=== PATIENT | female | born 1990 | race Caucasian/White ===

== ENCOUNTER 2017-07-06 01:28 | Inpatient (IN) | payer SELFPAY ==
[2017-07-06] MEDS ORDERED: Nalbuphine 20 MG/1 ML Amp IVPUSH PRN (19:37)
[2017-07-06] MEDS ORDERED: Ampicillin 2 GM in Sodium Chloride 0.9% 100 ML IV ONE (19:37)
[2017-07-06] MEDS ORDERED: Ondansetron 4 MG/2 ML SDV IVPUSH PRN (19:37)
[2017-07-06] MEDS ORDERED: Sodium Chloride 0.9% 10 ML Syringe FLUSH PRN (19:37)
--- NOTE | 2017-07-06 19:46 | PCM.LDHP ---
L&D History of Present Illness - General Date of Service: 07/06/17 Admit Problem/Dx: Admission Diagnosis/Problem Admission Diagnosis/Problem Source of Information: Patient History Limitations: Reports: No Limitations - History of Present Illness Introduction:: 27 DEMETRI 06/29/2017 VANESSA MENDEZ 41w0d today presented for induction of labor. GBS positive, Ampicillin ordered. O positive, Antibody screen negative. 12/08/16 H/H 13.9/.9.4 platelets [id number]. Rubella immune, RPR NR. HBsAg negative, HIV negative. GC/CT probe negative. On 03/30/17 H/H 11.9/35.3 and Platelets [id number]. OBGS. 165 Improves with: Reports: None Worsens with: Reports: None Associated Symptoms: Reports: N - Related Data Allergies/Adverse Reactions: Allergies Allergy/AdvReac Type Severity Reaction Status Date / Time miconazole Allergy Intermediate Tachycardia Verified 07/06/17 19:36 Sulfa (Sulfonamide Allergy Rash Verified 07/06/17 19:35 Antibiotics) Past Medical History : 1 Para: 0 (0000) H&P Review of Systems - Review of Systems: Review Of Systems: See Below General: Reports: No Symptoms HEENT: Reports: No Symptoms Pulmonary: Reports: No Symptoms Cardiovascular: Reports: No Symptoms Gastrointestinal: Reports: No Symptoms Genitourinary: Reports: No Symptoms Musculoskeletal: Reports: No Symptoms Skin: Reports: No Symptoms Psychiatric: Reports: No Symptoms Neurological: Reports: No Symptoms Hematologic/Lymphatic: Reports: No Symptoms Immunologic: Reports: No Symptoms L&D Exam - Exam Exam: See Below - Vital Signs Weight: 212 lb - OB Specific Fundal Height In cm: 39 Movement: Active Heart Tones: Present Heart Tones per Min: 140 Heart Rate (FHR) Variability: Moderate (6-25 bmp) Presentation: Vertex - Johns Score Johns Score Cervix Position: Posterior Johns Score Consistency: Soft Johns Score Effacement: 51-70% Johns Score Dilation: 1-2 cm Johns Score 's Station: -2 Johns Score Total: 6 - Exam General: Alert, Oriented HEENT: Conjunctiva Clear, Mucosa Moist & [place], TMs Clear, PERRLA Neck: Supple, Trachea Midline Lungs: Clear to Auscultation, Normal Respiratory Effort Cardiovascular: Regular Rate, Regular Rhythm GI/Abdominal Exam: Normal Bowel Sounds, Soft, Non-Tender, No Organomegaly, No Distention, No Abnormal Bruit, No Mass, Pelvis Stable Genitourinary: Normal external exam, Normal bimanual exam, Normal speculum exam Extremities: Normal Inspection, Normal Range of Motion, Non-Tender, No Pedal Edema, Normal Capillary Refill Skin: Warm, Dry, Intact Neurological: Reflexes Equal Bilateral Psychiatric: Alert, Normal Affect, Normal Mood - Problem List (1) 41 weeks gestation of SNOMED Code(s): 29075473 ICD Code: Z3A.41 - 41 WEEKS GESTATION OF Status: Acute Current Visit: Yes (2) GBS carrier SNOMED Code(s): 2876319575310 ICD Code: Z22.330 - CARRIER OF GROUP B STREPTOCOCCUS Status: Acute Current Visit: No Problem List Initiated/Reviewed/Updated: No Assessment/Plan Comment:: Plan induction, delivery.
[2017-07-06] MEDS: Misoprostol 25 MCG (1/4 of 100 MCG) Tab VAG SCH (20:28)
--- NOTE | 2017-07-06 20:30 | PCM.SN ---
- Free Text/Narrative Note: cervix 1 cm dilated, 80% effaced, posterior, soft, vertex -1-0 station. Category 1 heart rate. Cytotec 25 g placed at cervix.
[2017-07-06] MEDS: Lactated Ringers 1,000 ML IV SCH ×2 (21:02→23:40)
[2017-07-07] MEDS ORDERED: Metoclopramide 10 MG/2 ML SDV ONE (00:43)
[2017-07-07] MEDS ORDERED: Citric Acid/Sodium Citrate Solution 30 ML Cup ONE (00:44)
[2017-07-07] MEDS ORDERED: Citric Acid/Sodium Citrate Solution 30 ML Cup PO ONE (00:47)
[2017-07-07] MEDS ORDERED: Metoclopramide 10 MG/2 ML SDV IVPUSH ONE (00:47)
[2017-07-07] MEDS ORDERED: ceFAZolin 2 GM in Premix Bag 1 BAG IV ONE (00:48)
[2017-07-07] MEDS ORDERED: Bupivacaine 0.5% 30 ML SDV ONE (00:50)
--- NOTE | 2017-07-07 00:51 | PCM.SN ---
- Free Text/Narrative Note: Called to see patient, having late decelerations, no corrected with IV hydration. Cervix only 2 cm dilated. Discussed with patient and and will proceed with section.
[2017-07-07] MEDS ORDERED: Ondansetron 4 MG/2 ML SDV ONE (00:58)
[2017-07-07] MEDS ORDERED: Morphine PF 10 MG/10 ML SDV ONE (00:58)
[2017-07-07] MEDS ORDERED: Oxytocin 10 Units/1 ML SDV ONE (00:58)
[2017-07-07] MEDS ORDERED: ceFAZolin 1 GM Vial ONE (01:38)
[2017-07-07] MEDS ORDERED: Lactated Ringers 1,000 ML ONE ×2 (01:54)
[2017-07-07] MEDS ORDERED: Meperidine PF 50 MG/ML Syringe ONE (01:57)
--- NOTE | 2017-07-07 02:02 | PCM.OPNOTE ---
- General Post-Op/Procedure Note Date of Surgery/Procedure: 07/07/17 Operative Procedure(s): Low segment transverse (left inferior extension towards cervix) Pre Op Diagnosis: Nonreassuring heart rate pattern. Post-Op Diagnosis: Same plus occiput posterior. Anesthesia Technique: Spinal Primary Surgeon: Ortega Long Secondary Surgeon: John Rajput Jr Anesthesia Provider: Bran Rvias Reason Caddy Master Was Necessary: Patient safety, decrease comorbidity and cold mortality retraction Role of Caddy Master: See above Fluid Replacement, Intraop: 600 Output, Urine Amount: 200 EBL in mLs: 800 Drain/Tube Comments:: Schilling Complications: Left inferior extension toward cervix Condition: Good Free Text/Narrative:: Patient was transported to operating room #1 and placed under spinal anesthesia in the supine position with wedge under the right hip and right flank. SCDs in place and functioning. Ancef 2 g given intravenously prior surgery. Timeout performed confirming name, date of , procedure as section. Patient was prepared and draped in a sterile fashion using Betadine solution and draped in a sterile fashion and adequate level of anesthesia was confirmed patient's brought to the operating room. Pfannenstiel incision was made and care was sharp section to into the anterior fascia. The peritoneal cavity was entered without difficulty and bladder flap created and pushed caudad. Low segment transverse performed delivering a male liveborn is 0128 hrs. on Thursday07/07/17. [place] weight 30/4/70 grams/7 lbs. 10 oz. Apgars 9/9 at one and [address] Vigil present and cared for the . The position was occiput posterior requiring manual rotation and delivery of the . Left inferior extension towards the cervix was obtained and repaired during the closure. Cord blood was collected from three-vessel cord and placenta was removed manually. Endometrial cavity inspected all remnants of membranes removed cervical patency assured. Sponge needle pack asthma sharp count correct times one. The uterine incision including the left inferior extension closed in 2 layers first layer running locking suture of #0 Monocryl, second layer horizontal imbricating suture of 0 Monocryl. Both tubes and ovaries were normal clot screen from the gutters and cul-de-sac uterus placed into the abdominal cavity. Uterine incision reinspected no bleeding. Sponge needle pack asthma sharp count correct 2. The abdominal cavity was closed with #1 PDS for the anterior fascia. Irrigation was carried out in the subcutaneous tissue. The skin was approximated with subcutaneous 3-0 Monocryl on Kristopher needle. Dermabond Preneo applied. No blood transfusions required patient transported postanesthesia care unit in satisfactory condition.
[2017-07-07] MEDS ORDERED: Ketorolac 30 MG/ML SDV ONE (02:05)
--- NOTE | 2017-07-07 02:05 | PCM.POSTAN ---
POST ANESTHESIA ASSESSMENT - MENTAL STATUS Mental Status: Alert, Oriented - VITAL SIGNS Pulse Rate: 91 SaO2: 98 Resp Rate: 18 Blood Pressure: 133/88 Temperature: 36.7 C - RESPIRATORY Respiratory Status: Respiratory Rate WNL, Airway Patent, O2 Saturation Stable - CARDIOVASCULAR CV Status: Pulse Rate WNL, Blood Pressure Stable - GASTROINTESTINAL GI Status: No Symptoms - PAIN Pain Score: 0 - POST OP HYDRATION Hydration Status: Adequate & Stable
--- NOTE | 2017-07-07 02:07 | PCM.PREANE ---
Preanesthetic Assessment - Procedure Proposed Procedure: Stat C Section - Anesthesia/Transfusion/Family Hx Anesthesia History: No Prior Anesthesia Family History of Anesthesia Reaction: No Transfusion History: No Prior Transfusion(s) Type of Transfusion Reactions: Reports: Unknown Intubation History: Unknown - Review of Systems General: No Symptoms Pulmonary: No Symptoms Cardiovascular: No Symptoms Gastrointestinal: Other (GERD) Neurological: No Symptoms Other: Reports: None - Physical Assessment NPO Status Date: 07/06/17 NPO Status Time: 18:00 Pulse: 91 O2 Sat by Pulse Oximetry: 98 Respiratory Rate: 18 Blood Pressure: 133/88 Temperature: 36.7 C Vital Signs: Last Vital Signs Temp 36.7 C 07/07/17 02:05 Pulse 91 07/07/17 02:05 Resp 18 07/07/17 02:05 BP 133/88 07/07/17 02:05 Pulse Ox 98 07/07/17 02:05 Height: 1.65 m Weight: 96.162 kg ASA Class: 2E Mental Status: Alert & Oriented x3 Airway Class: Mallampati = 2 Dentition: Reports: Normal Dentition Thyro-Mental Finger Breadths: 3 Mouth Opening Finger Breadths: 3 ROM/Head Extension: Full Lungs: Clear to Auscultation, Normal Respiratory Effort Cardiovascular: Regular Rate, Regular Rhythm - Lab Values: Laboratory Last Values WBC 11.53 K/mm3 (3.98-10.04) H 07/06/17 19:58 RBC 3.81 M/mm3 (3.98-5.22) L 07/06/17 19:58 Hgb 10.4 gm/L (11.2-15.7) L 07/06/17 19:58 Hct 31.4 % (34.1-44.9) L 07/06/17 19:58 MCV 82.4 fl (79.4-94.8) 07/06/17 19:58 MCH 27.3 pg (25.6-32.2) 07/06/17 19:58 MCHC 33.1 g/dl (32.2-35.5) 07/06/17 19:58 RDW Std Deviation 46.3 fL (36.4-46.3) 07/06/17 19:58 Plt Count 341 K/mm3 (182-369) 07/06/17 19:58 MPV 8.9 fl (9.4-12.3) L 07/06/17 19:58 Neut % (Auto) 68.6 % (34.0-71.1) 07/06/17 19:58 Lymph % (Auto) 21.1 % (19.3-51.7) 07/06/17 19:58 [place] % (Auto) 8.3 % (4.7-12.5) 07/06/17 19:58 Eos % (Auto) 1.1 (0.7-5.8) 07/06/17 19:58 Baso % (Auto) 0.1 % (0.1-1.2) 07/06/17 19:58 Neut # (Auto) 7.91 K/mm3 (1.56-6.13) H 07/06/17 19:58 Lymph # (Auto) 2.43 K/mm3 (1.18-3.74) 07/06/17 19:58 [place] # (Auto) 0.96 K/mm3 (0.24-0.36) H 07/06/17 19:58 Eos # (Auto) 0.13 K/mm3 (0.04-0.36) 07/06/17 19:58 Baso # (Auto) 0.01 K/mm3 (0.01-0.08) 07/06/17 19:58 Blood Type O POSITIVE 07/06/17 19:58 Gel Antibody Screen Negative 07/06/17 19:58 - Allergies Allergies/Adverse Reactions: Allergies Allergy/AdvReac Type Severity Reaction Status Date / Time miconazole Allergy Intermediate Tachycardia Verified 07/06/17 19:36 Sulfa (Sulfonamide Allergy Rash Verified 07/06/17 19:35 Antibiotics) - Blood Blood Available: No Product(s) Available: None - Anesthesia Plan Pre-Op Medication Ordered: None - Acknowledgements Anesthesia Type Planned: Spinal (with duramorph) Pt an Appropriate Candidate for the Planned Anesthesia: Yes Alternatives and Risks of Anesthesia Discussed w Pt/Guardian: Yes Pt/Guardian Understands and Agrees with Anesthesia Plan: Yes PreAnesthesia Questionnaire [employer] History: Reports: - Past Surgical History HEENT Surgical History: Reports: Oral Surgery Other HEENT Surgeries/Procedures: [place] teeth extraction 2004 - SUBSTANCE USE Smoking Status *Q: Never Smoker Second Hand Smoke Exposure: No Recreational Drug Use History: No - CURRENT (IN HOUSE) MEDS Current Meds: Current Medications Ampicillin Sodium 1 gm/ Sodium (Chloride) 100 mls @ 200 mls/hr IV Q4H [facility] Lactated Ringer's (Ringers, Lactated) 1,000 mls @ 100 mls/hr IV ASDIRECTED [facility] Last Admin: 07/06/17 23:40 Dose: 100 mls/hr Oxytocin 20 unit/ Lactated (Ringer's) 1,002 mls @ 500 mls/hr IV .ASDIRECTED [facility] Nalbuphine HCl (Nubain) 10 mg IVPUSH Q2H PRN PRN Reason: Pain (moderate 4-6) Ondansetron HCl (Zofran) 4 mg IVPUSH Q4H PRN PRN Reason: Nausea/Vomiting Sodium Chloride (Saline Flush) 10 ml FLUSH ASDIRECTED PRN PRN Reason: Keep Vein Open Discontinued Medications Bupivacaine HCl (Marcaine 0.5%) Confirm Administered Dose 30 ml .ROUTE .STK-MED ONE Stop: 07/07/17 00:51 Cefazolin Sodium (Ancef) Confirm Administered Dose 2 gm .ROUTE .STK-MED ONE Stop: 07/07/17 01:39 Citric Acid/Sodium Citrate (Bicitra Solution) Confirm Administered Dose 30 ml .ROUTE .STK-MED ONE Stop: 07/07/17 00:45 Citric Acid/Sodium Citrate (Bicitra Solution) 30 ml PO ONETIME ONE Stop: 07/07/17 00:48 Ampicillin Sodium 2 gm/ Sodium (Chloride) 100 mls @ 200 mls/hr IV ONETIME ONE Stop: 07/06/17 20:06 Last Admin: 07/06/17 21:02 Dose: 200 mls/hr Cefazolin Sodium/Dextrose 2 gm (/ Premix) 50 mls @ 100 mls/hr IV ONETIME ONE Stop: 07/07/17 01:17 Lactated Ringer's (Ringers, Lactated) Confirm Administered Dose 1,000 mls @ as directed .ROUTE .STK-MED ONE Stop: 07/07/17 01:55 Lactated Ringer's (Ringers, Lactated) Confirm Administered Dose 1,000 mls @ as directed .ROUTE .STK-MED ONE Stop: 07/07/17 01:55 Ketorolac Tromethamine (Toradol) Confirm Administered Dose 30 mg .ROUTE .STK- MED ONE Stop: 07/07/17 02:06 Meperidine HCl (Demerol) Confirm Administered Dose 50 mg .ROUTE .STK-MED ONE Stop: 07/07/17 01:58 Metoclopramide HCl (Reglan) Confirm Administered Dose 10 mg .ROUTE .STK-MED ONE Stop: 07/07/17 00:44 Metoclopramide HCl (Reglan) 10 mg IVPUSH ONETIME ONE Stop: 07/07/17 00:48 Misoprostol (Cytotec) 25 mcg VAG Q3H JOHNNA Stop: 07/07/17 02:01 Last Admin: 07/06/17 20:28 Dose: 25 mcg Morphine Sulfate (Duramorph Pf) Confirm Administered Dose 10 mg .ROUTE .STK-MED ONE Stop: 07/07/17 00:59 Ondansetron HCl (Zofran) Confirm Administered Dose 4 mg .ROUTE .STK-MED ONE Stop: 07/07/17 00:59 Oxytocin (Pitocin) Confirm Administered Dose 20 unit .ROUTE .STK-MED ONE Stop: 07/07/17 00:59
[2017-07-07] MEDS: Misoprostol 25 MCG (1/4 of 100 MCG) Tab VAG SCH ×3 (03:36→08:57)
[2017-07-07] MEDS ORDERED: diphenhydrAMINE 50 MG/ML SDV IVPUSH PRN (03:38)
[2017-07-07] MEDS ORDERED: Lanolin 100% Cream 7 GM Tube TOP PRN (03:38)
[2017-07-07] MEDS ORDERED: Docusate Sodium 100 MG Cap PO PRN (03:38)
[2017-07-07] MEDS ORDERED: Sodium Chloride 0.9% 10 ML Syringe FLUSH PRN (03:38)
[2017-07-07] MEDS ORDERED: Naloxone 0.4 MG/ML SDV IVPUSH PRN (03:38)
[2017-07-07] MEDS ORDERED: Dextrose 5%-Lactated Ringers 1,000 ML IV SCH (03:38)
[2017-07-07] MEDS ORDERED: ePHEDrine 50 MG/ML SDV IVPUSH PRN (03:38)
[2017-07-07] MEDS ORDERED: Ondansetron 4 MG/2 ML SDV IV PRN (03:38)
[2017-07-07] MEDS: Simethicone 80 MG Tab.Chew PO SCH ×4 (09:09→21:44)
[2017-07-07] MEDS: Ketorolac 30 MG/ML SDV IVPUSH SCH ×3 (09:09→21:43)
[2017-07-07] MEDS: Ampicillin 1 GM in Sodium Chloride 0.9% 100 ML IV SCH (10:24)
[2017-07-07] MEDS: Acetaminophen/oxyCODONE 325-5 MG Tab PO PRN ×2 (12:33→20:24)
--- NOTE | 2017-07-07 13:52 | PCM48HPAN ---
Post Anesthesia Note - EVALUATION WITHIN 48HRS OF ANESTHETIC Vital Signs in Normal Range: Yes Patient Participated in Evaluation: Yes Respiratory Function Stable: Yes Airway Patent: Yes Cardiovascular Function Stable: Yes Hydration Status Stable: Yes Pain Control Satisfactory: Yes Nausea and Vomiting Control Satisfactory: Yes Mental Status Recovered: Yes - COMMENTS/OBSERVATIONS Free Text/Narrative:: Radha is up walking around today. No numbness/tingling in her legs. Slight headache earlier that is gone now. No further questions at this time. No apparent complications noted.
[2017-07-08] MEDS ORDERED: Ibuprofen 600 MG Tab PO PRN (02:00)
[2017-07-08] MEDS: Acetaminophen/oxyCODONE 325-5 MG Tab PO PRN ×5 (03:21→22:35)
[2017-07-08] MEDS: Simethicone 80 MG Tab.Chew PO SCH ×4 (08:17→22:36)
--- NOTE | 2017-07-08 08:40 | PCM.SN ---
- Free Text/Narrative Note: Postop day one/ day 1 Afebrile, chest clear, cardiovascular exam normal. Uterus involuting normally at U -1. Incision appears normal. No heavy vaginal bleeding. No calf tenderness. Trace pretibial edema. Probably home tomorrow.
--- NOTE | 2017-07-08 08:45 | PCM.SN ---
- Free Text/Narrative Note: Internal uterine activity catheter placed. Cervix is 6 cm dilated 100% effaced anterior soft 0 station category 1 heart rate
[2017-07-09] MEDS: Acetaminophen/oxyCODONE 325-5 MG Tab PO PRN (03:45)
--- NOTE | 2017-07-09 08:40 | PCM.DCSUM1 ---
Discharge Summary - Hospital Course Free Text/Narrative:: [facility] Post-Op/Procedure Note Patient Name: GABRIELLA ULLOA Date of : 88 Patient Status: Inpatient Attending Provider: Ortega Long Date: 07/07/17 01:56 Initialization Date: 07/07/17 01:56 - General Post-Op/Procedure Note Date of Surgery/Procedure: 07/07/17 Operative Procedure(s): Low segment transverse (left inferior extension towards cervix) Pre Op Diagnosis: Nonreassuring heart rate pattern. Post-Op Diagnosis: Same plus occiput posterior. Anesthesia Technique: Spinal Primary Surgeon: Ortega Long Secondary Surgeon: John Rajput Jr Anesthesia Provider: Bran Rivas Reason Continuous Yarn Dyeing Machine Operator Was Necessary: Patient safety, decrease comorbidity and cold mortality retraction Role of Continuous Yarn Dyeing Machine Operator: See above Fluid Replacement, Intraop: 600 Output, Urine Amount: 200 EBL in mLs: 800 Drain/Tube Comments:: Schilling Complications: Left inferior extension toward cervix Condition: Good Free Text/Narrative:: Patient was transported to operating room #1 and placed under spinal anesthesia in the supine position with wedge under the right hip and right flank. SCDs in place and functioning. Ancef 2 g given intravenously prior surgery. Timeout performed confirming name, date of , procedure as section. Patient was prepared and draped in a sterile fashion using Betadine solution and draped in a sterile fashion and adequate level of anesthesia was confirmed patient's brought to the operating room. Pfannenstiel incision was made and care was sharp section to into the anterior fascia. The peritoneal cavity was entered without difficulty and bladder flap created and pushed caudad. Low segment transverse performed delivering a male liveborn is 0128 hrs. on Thursday07/07/17. weight 30/4/70 grams/7 lbs. 10 oz. Apgars 9/9 at one and [address] Vigil present and cared for the . The position was occiput posterior requiring manual rotation and delivery of the . Left inferior extension towards the cervix was obtained and repaired during the closure. Cord blood was collected from three-vessel cord and placenta was removed manually. Endometrial cavity inspected all remnants of membranes removed cervical patency assured. Sponge needle pack asthma sharp count correct times one. The uterine incision including the left inferior extension closed in 2 layers first layer running locking suture of #0 Monocryl, second layer horizontal imbricating suture of 0 Monocryl. Both tubes and ovaries were normal clot screen from the gutters and cul-de-sac uterus placed into the abdominal cavity. Uterine incision reinspected no bleeding. Sponge needle pack asthma sharp count correct 2. The abdominal cavity was closed with #1 PDS for the anterior fascia. Irrigation was carried out in the subcutaneous tissue. The skin was approximated with subcutaneous 3-0 Monocryl on Kristopher needle. Dermabond Preneo applied. No blood transfusions required patient transported postanesthesia care unit in satisfactory condition. HPI Initial Comments: [facility] Post-Op/Procedure Note Patient Name: GABRIELLA ULLOA Date of : 88 Patient Status: Inpatient Attending Provider: Ortega Long Date: 07/07/17 01:56 Initialization Date: 07/07/17 01:56 - General Post-Op/Procedure Note Date of Surgery/Procedure: 07/07/17 Operative Procedure(s): Low segment transverse (left inferior extension towards cervix) Pre Op Diagnosis: Nonreassuring heart rate pattern. Post-Op Diagnosis: Same plus occiput posterior. Anesthesia Technique: Spinal Primary Surgeon: Ortega Long Secondary Surgeon: John Rajput Jr Anesthesia Provider: Bran Rivas Reason Continuous Yarn Dyeing Machine Operator Was Necessary: Patient safety, decrease comorbidity and cold mortality retraction Role of Continuous Yarn Dyeing Machine Operator: See above Fluid Replacement, Intraop: 600 Output, Urine Amount: 200 EBL in mLs: 800 Drain/Tube Comments:: Schilling Complications: Left inferior extension toward cervix Condition: Good Free Text/Narrative:: Patient was transported to operating room #1 and placed under spinal anesthesia in the supine position with wedge under the right hip and right flank. SCDs in place and functioning. Ancef 2 g given intravenously prior surgery. Timeout performed confirming name, date of , procedure as section. Patient was prepared and draped in a sterile fashion using Betadine solution and draped in a sterile fashion and adequate level of anesthesia was confirmed patient's brought to the operating room. Pfannenstiel incision was made and care was sharp section to into the anterior fascia. The peritoneal cavity was entered without difficulty and bladder flap created and pushed caudad. Low segment transverse performed delivering a male liveborn is 0128 hrs. on Thursday07/07/17. Zimmerman weight 30/4/70 grams/7 lbs. 10 oz. Apgars 9/9 at one and [address] Vigil present and cared for the . The position was occiput posterior requiring manual rotation and delivery of the . Left inferior extension towards the cervix was obtained and repaired during the closure. Cord blood was collected from three-vessel cord and placenta was removed manually. Endometrial cavity inspected all remnants of membranes removed cervical patency assured. Sponge needle pack asthma sharp count correct times one. The uterine incision including the left inferior extension closed in 2 layers first layer running locking suture of #0 Monocryl, second layer horizontal imbricating suture of 0 Monocryl. Both tubes and ovaries were normal clot screen from the gutters and cul-de-sac uterus placed into the abdominal cavity. Uterine incision reinspected no bleeding. Sponge needle pack asthma sharp count correct 2. The abdominal cavity was closed with #1 PDS for the anterior fascia. Irrigation was carried out in the subcutaneous tissue. The skin was approximated with subcutaneous 3-0 Monocryl on Kristopher needle. Dermabond Preneo applied. No blood transfusions required patient transported postanesthesia care unit in satisfactory condition. Brief History: [facility] . Post-Op/Procedure Note. [facility]: [id number] Date of : [birth year]Patient Status: Inpatient. Attending Provider: Ortega Longccount Number: [id number]. Date: 07/07/17 01:56Initialization Date: 07/07/17 01:56. - General Post-Op/Procedure Note. Date of Surgery/Procedure: 07/07/17. Operative Procedure(s): Low segment transverse (left inferior extension towards cervix). Pre Op Diagnosis: Nonreassuring heart rate pattern. Post-Op Diagnosis: Same plus occiput posterior. Anesthesia Technique : Spinal. Primary Surgeon: Ortega Long. Secondary Surgeon: John Rajput Jr. Anesthesia Provider: Bran Rivas. Reason Continuous Yarn Dyeing Machine Operator Was Necessary: Patient safety, decrease comorbidity and cold mortality retraction. Role of Continuous Yarn Dyeing Machine Operator: See above. Fluid Replacement, Intraop: 600. Output, Urine Amount: 200. EBL in mLs: 800. Drain/Tube Comments:: Schilling. Complications: Left inferior extension toward cervix. Condition: Good. Free Text/Narrative:: Patient was transported to operating room #1 and placed under spinal anesthesia in the supine position with wedge under the right hip and right flank. SCDs in place and functioning. Ancef 2 g given intravenously prior surgery. Timeout performed confirming name, date of , procedure as section. Patient was prepared and draped in a sterile fashion using Betadine solution and draped in a sterile fashion and adequate level of anesthesia was confirmed patient's brought to the operating room. Pfannenstiel incision was made and care was sharp section to into the anterior fascia. The peritoneal cavity was entered without difficulty and bladder flap created and pushed caudad. Low segment transverse performed delivering a male liveborn is 0128 hrs. on Thursday07/07/17. weight 30/4 /70 grams/7 lbs. 10 oz. Apgars 9/9 at one and [address] Vigil present and cared for the . The position was occiput posterior requiring manual rotation and delivery of the . Left inferior extension towards the cervix was obtained and repaired during the closure. Cord blood was collected from three-vessel cord and placenta was removed manually. Endometrial cavity inspected all remnants of membranes removed cervical patency assured. Sponge needle pack asthma sharp count correct times one. The uterine incision including the left inferior extension closed in 2 layers first layer running locking suture of #0 Monocryl, second layer horizontal imbricating suture of 0 Monocryl. Both tubes and ovaries were normal clot screen from the gutters and cul-de-sac uterus placed into the abdominal cavity. Uterine incision reinspected no bleeding. Sponge needle pack asthma sharp count correct 2. The abdominal cavity was closed with #1 PDS for the anterior fascia. Irrigation was carried out in the subcutaneous tissue. The skin was approximated with subcutaneous 3-0 Monocryl on Kristopher needle. Dermabond Preneo applied. No blood transfusions required patient transported postanesthesia care unit in satisfactory condition. - Discharge Data Discharge Date: 07/09/17 Discharge Disposition: Home, Self-Care 01 Condition: Good - Discharge Diagnosis/Problem(s) (1) 41 weeks gestation of SNOMED Code(s): 97367861 ICD Code: Z3A.41 - 41 WEEKS GESTATION OF Status: Acute Current Visit: Yes (2) GBS carrier SNOMED Code(s): 9549485614480 ICD Code: Z22.330 - CARRIER OF GROUP B STREPTOCOCCUS Status: Acute Current Visit: Yes - Patient Summary/Data Operative Procedure(s) Performed: Low segment transverse (left inferior extension towards cervix) Complications: None Consults: None Hospital Course: Uneventful - Patient Instructions Diet: Regular Diet as Tolerated Driving: Do Not Drive (2 weeks and 48 hours after last dose of Percocet) Showering/Bathing: May Shower, No Tub Bathing/Swimming (6 weeks) Wound/Incision Care: Keep Operative Site/Wound Site Clean and Dry Notify Provider of: Fever, Increased Pain, Swelling and Redness, Drainage, Nausea and/or Vomiting - Discharge Plan Prescriptions/Med Rec: Acetaminophen/oxyCODONE [Percocet 325-5 MG] 1 tab PO Q6H PRN #20 tablet PRN Reason: Pain Home Medications: Home Meds Acetaminophen/oxyCODONE [Percocet 325-5 MG] 1 tab PO Q6H PRN #20 tablet [Rx] Docusate Sodium [Colace] 100 mg PO Q12H PRN cap 07/09/17 [Rx] Ibuprofen [IJD: Ibuprofen] 600 mg PO Q6H PRN tablet 07/09/17 [Rx] Lanolin [Lansinoh HPA] 1 applic TOP ASDIRECTED PRN tube 07/09/17 [Rx] Simethicone 80 mg PO PCBED tab.chew 07/09/17 [Rx] Referrals: Ortega Long MD [Primary Care Provider] - (2 weeks) - Discharge Summary/Plan Comment DC Time >30 min.: No - Patient Data Vitals - Most Recent: Last Vital Signs Temp 98.2 F 07/08/17 08:10 Pulse 76 07/08/17 12:35 Resp 16 07/08/17 03:00 BP 137/81 07/08/17 12:35 Pulse Ox 96 07/08/17 12:35 Weight - Most Recent: 212 lb I&O - Last 24 hours: Intake & Output 07/08/17 07/09/17 07/09/17 22:59 06:59 14:59 Intake Total 300 Balance 300 Med Orders - Current: Current Medications Diphenhydramine HCl (Benadryl) 25 mg IVPUSH Q6H PRN PRN Reason: Itching or Nausea Docusate Sodium (Colace) 100 mg PO Q12H PRN PRN Reason: Constipation Last Admin: 07/09/17 05:00 Dose: 100 mg Emollient Ointment (Lansinoh Hpa) 0 gm TOP ASDIRECTED PRN PRN Reason: Sore Nipples Ephedrine Sulfate (Ephedrine Sulfate) 5 mg IVPUSH SEECOMMENT PRN PRN Reason: Other Ibuprofen (Motrin) 600 mg PO Q6H PRN PRN Reason: mild pain or fever Last Admin: 07/08/17 10:06 Dose: 600 mg Naloxone HCl (Narcan) 0.1 mg IVPUSH SEECOMMENT PRN PRN Reason: Respiratory Depression Ondansetron HCl (Zofran) 4 mg IV Q8H PRN PRN Reason: Nausea/Vomiting Oxycodone/Acetaminophen (Percocet 325-5 Mg) 2 tab PO Q4H PRN PRN Reason: Pain (moderate 4-6) Last Admin: 07/09/17 03:45 Dose: 2 tab Simethicone (Simethicone) 80 mg PO PCBED JOHNNA Last Admin: 07/08/17 22:36 Dose: 80 mg Sodium Chloride (Saline Flush) 10 ml FLUSH ASDIRECTED PRN PRN Reason: Keep Vein Open Discontinued Medications Bupivacaine HCl (Marcaine 0.5%) Confirm Administered Dose 30 ml .ROUTE .STK-MED ONE Stop: 07/07/17 00:51 Last Admin: 07/07/17 01:25 Dose: 20 ml Cefazolin Sodium (Ancef) Confirm Administered Dose 2 gm .ROUTE .STK-MED ONE Stop: 07/07/17 01:39 Citric Acid/Sodium Citrate (Bicitra Solution) Confirm Administered Dose 30 ml .ROUTE .STK-MED ONE Stop: 07/07/17 00:45 Last Admin: 07/07/17 03:36 Dose: Not Given Citric Acid/Sodium Citrate (Bicitra Solution) 30 ml PO ONETIME ONE Stop: 07/07/17 00:48 Last Admin: 07/07/17 00:50 Dose: 30 ml Ampicillin Sodium 2 gm/ Sodium (Chloride) 100 mls @ 200 mls/hr IV ONETIME ONE Stop: 07/06/17 20:06 Last Admin: 07/06/17 21:02 Dose: 200 mls/hr Ampicillin Sodium 1 gm/ Sodium (Chloride) 100 mls @ 200 mls/hr IV Q4H [facility] Last Admin: 07/07/17 10:24 Dose: Not Given Lactated Ringer's (Ringers, Lactated) 1,000 mls @ 100 [facility]ls[facility] Last Admin: 07/06/17 23:40 Dose: 100 mls/hr Oxytocin 20 unit/ Lactated (Ringer's) 1,002 mls @ 500 mls/hr IV .ASDIRECTED [facility] Cefazolin Sodium/Dextrose 2 gm (/ Premix) 50 mls @ 100 mls/hr IV ONETIME ONE Stop: 07/07/17 01:17 Last Admin: 07/07/17 10:24 Dose: Not Given Lactated Ringer's (Ringers, Lactated) Confirm Administered Dose 1,000 mls @ as directed .ROUTE .STK-MED ONE Stop: 07/07/17 01:55 Lactated Ringer's (Ringers, Lactated) Confirm Administered Dose 1,000 mls @ as directed .ROUTE .STK-MED ONE Stop: 07/07/17 01:55 Dextrose/Lactated Ringer's (Dextrose 5%-Lactated Ringers) 1,000 mls @ 125 mls/ hr [facility] Stop: 07/07/17 11:37 Last Admin: 07/07/17 03:58 Dose: 125 mls/hr Ketorolac Tromethamine (Toradol) Confirm Administered Dose 30 mg .ROUTE .STK- MED ONE Stop: 07/07/17 02:06 Ketorolac Tromethamine (Toradol) 30 mg IVPUSH Q6H [facility] Stop: 07/07/17 20:01 Last Admin: 07/07/17 21:43 Dose: 30 mg Meperidine HCl (Demerol) Confirm Administered Dose 50 mg .ROUTE .STK-MED ONE Stop: 07/07/17 01:58 Metoclopramide HCl (Reglan) Confirm Administered Dose 10 mg .ROUTE .STK-MED ONE Stop: 07/07/17 00:44 Last Admin: 07/07/17 03:36 Dose: Not Given Metoclopramide HCl (Reglan) 10 mg IVPUSH ONETIME ONE Stop: 07/07/17 00:48 Last Admin: 07/07/17 00:50 Dose: 10 mg Misoprostol (Cytotec) 25 mcg VAG Q3H JOHNNA Stop: 07/07/17 02:01 Last Admin: 07/07/17 08:57 Dose: Not Given Morphine Sulfate (Duramorph Pf) Confirm Administered Dose 10 mg .ROUTE .STK-MED ONE Stop: 07/07/17 00:59 Nalbuphine HCl (Nubain) 10 mg IVPUSH Q2H PRN PRN Reason: Pain (moderate 4-6) Ondansetron HCl (Zofran) 4 mg IVPUSH Q4H PRN PRN Reason: Nausea/Vomiting Ondansetron HCl (Zofran) Confirm Administered Dose 4 mg .ROUTE .STK-MED ONE Stop: 07/07/17 00:59 Oxytocin (Pitocin) Confirm Administered Dose 20 unit .ROUTE .STK-MED ONE Stop: 07/07/17 00:59 Sodium Chloride (Saline Flush) 10 ml FLUSH ASDIRECTED PRN PRN Reason: Keep Vein Open *Q Meaningful Use (DIS) - VTE *Q VTE Criteria *Q: - Stroke *Q Stroke Criteria *Q: - AMI *Q AMI Criteria *Q:
[2017-07-09] MEDS: Simethicone 80 MG Tab.Chew PO SCH (11:04)
== END 2017-07-09 10:00 | disposition home or self-care (01) | DRG 766 ==
LOC: JD.OB 01:28 → OBSVTOIN 07-07 01:28 → JD.OB 07-07 02:09
PROVIDERS: ADMIT Obstetrics & Gynecology; ATTEND Obstetrics & Gynecology
PROC: 10D00Z1 Extraction of Products of Conception, Low, Open Approach (ICD-10-PCS; principal; 2017-07-07)
PROC: 3E0P7VZ Introduction of Hormone into Female Reproductive, Via Natural or Artificial Opening (ICD-10-PCS; 2017-07-07)
PROC: 00HU33Z Insertion of Infusion Device into Spinal Canal, Percutaneous Approach (ICD-10-PCS; 2017-07-07)
PROC: 3E0R3BZ Introduction of Anesthetic Agent into Spinal Canal, Percutaneous Approach (ICD-10-PCS; 2017-07-07)
DX: O48.0 Post-term pregnancy (principal); Z3A.41 41 weeks gestation of pregnancy; Z37.0 Single live birth; O99.824 Streptococcus B carrier state complicating childbirth; O76 Abnormality in fetal heart rate and rhythm complicating labor and delivery; O32.8XX0 Maternal care for other malpresentation of fetus, not applicable or unspecified
CPT/HCPCS: 01961; 36415; 51702; 85025; 86850; 86900; 86901; 94762; A9270-GY; J0290; J0690; J1885; J2175; J2270; J2405; J2590; J2765; J7030; J7042; J7120

== ENCOUNTER 2017-07-19 03:55 | Emergency (ER) | payer SELFPAY ==
--- NOTE | 2017-07-19 04:17 | EDM.PDOC ---
ED HPI GENERAL MEDICAL PROBLEM - General Chief Complaint: Lower Extremity Injury/Pain Stated Complaint: LEG PAIN Time Seen by Provider: 07/19/17 04:05 Source of Information: Reports: Patient, Family (spouse) History Limitations: Reports: No Limitations - History of Present Illness INITIAL COMMENTS - FREE TEXT/NARRATIVE: 27-year-old female who is 10 days post presents the ED with painful calf on the left side. Patient is aware of every step with pain in her medial posterior left calf. Pain started suddenly on , June 15. Patient only gets relief by placing hot water on the area. She limps quite badly due to pain. Patient did have a carried out due to being 41 weeks gestation with poor heart rate variability. She was taking Percocet tablets up until 3 days ago. Currently she is on ibuprofen 600 mg every 6 hours when necessary and she is finding this satisfactory medication to control her pain. Patient has appreciated some increased vaginal flow over the last 24 hours with some clots present. She denies any shortness of breath or sharp stabbing pleuritic chest pain. No past history of DVT. Onset: Sudden Onset Date: 07/16/17 Duration: Day(s): Location: Reports: Lower Extremity, Left (Left posterior calf below the knee.) Quality: Reports: Ache, Stabbing, Throbbing Severity: Moderate Improves with: Reports: Rest, Other (Application of hot water to the area.) Worsens with: Reports: Movement (Ambulation.) Context: Reports: Other (10 days having had a .). Denies: Activity, Exercise, Lifting, Sick Contact, Trauma Associated Symptoms: Reports: No Other Symptoms. Denies: Fever/Chills, Headaches, Loss of Appetite, Malaise, Nausea/Vomiting, Rash, Seizure, Shortness of Breath, Syncope, Weakness Treatments LABORER HOISTING: Reports: NSAIDS (Has been on Motrin only for pain relief last 3 days. Prior to this she was taking Percocet.) Left Lower Leg Pain Score (Numeric/FACES): 8 - Related Data Allergies Allergy/AdvReac Type Severity Reaction Status Date / Time miconazole Allergy Intermediate Tachycardia Verified 07/19/17 04:09 Sulfa (Sulfonamide Allergy Rash Verified 07/19/17 04:09 Antibiotics) Home Meds: Home Meds . [No Known Home Meds] 07/19/17 [History] PNV95/Ferrous Fumarate/FA [ Tablet] 1 tab PO DAILY 07/19/17 [History] Past Medical History - Past Health History Medical/Surgical History: Denies Medical/Surgical History SR. 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 Mild constipation while on pain pills but better now.) Genitourinary: Reports: Vaginal Bleeding (10 days post delivered by C- section. Noted increased bleeding and clotting per vagina in the last 24 hours.) Musculoskeletal: Reports: Leg Pain (See history of present illness) Skin: Reports: No Symptoms Neurological: Reports: No Symptoms Psychiatric: Reports: No Symptoms ED EXAM, GENERAL - Physical Exam Exam: See Below Exam Limited By: No Limitations General Appearance: Alert, WD/WN, No Apparent Distress, Other (Blood pressure is elevated at 1:30 02/21/02 pulse ox 96% on room air.) Respiratory/Chest: No Respiratory Distress, Lungs Clear, Normal Breath Sounds, No Accessory Muscle Use Cardiovascular: Normal Peripheral Pulses, Regular Rate, Rhythm, No Edema, No Gallop, No Murmur Peripheral Pulses: 3+: Posterior Tibial (L), Posterior Tibial (R), Dorsalis Pedis (L), Dorsalis Pedis (R) GI/Abdominal: Other (Healing wound lower abdomen with Steri-Strips in place. Wound appears to be healing normally without any signs of infection.) Extremities: Leg Pain (Examination of the left leg reveals some fullness in the popliteal fossa on the left side. There is no true knee effusion. Tenderness is well localized to the medial gastrocnemius muscle posteriorly in the upper one third of the muscle belly. There is mild tenderness in the midline of the leg and no tenderness in the lateral gastrocnemius muscle distribution. There is no significant edema in either lower extremity.). No: Increased Warmth, Mottled, Pallor, Redness Neurological: Alert, Oriented, CN II-XII Intact, Normal Cognition. No: Normal Gait Psychiatric: Normal Affect (Limping gait.), Normal Mood Skin Exam: Warm, Dry, Intact, Normal Color, No Rash Course - Vital Signs Last Recorded V/S: Last Vital Signs Temp 37.3 C 07/19/17 04:00 Pulse 96 07/19/17 04:00 Resp 16 07/19/17 04:00 BP 137/102 H 07/19/17 04:00 Pulse Ox 95 07/19/17 04:00 - Orders/Labs/Meds Orders: Active Orders 24 hr Category Date Time Status VL Duplex Lwr Ext Veins Ltd [US] Stat Exams 07/19/17 04:22 Taken - Radiology Interpretation Free Text/Narrative:: 19-year-old female presents to the ED with sudden onset of pain in her posterior left calf starting or July 16. Pain is constant throbbing and worsened by weightbearing. This causes her to have a limping gait. She appreciates increased pain with flexion of her left ankle. She gets some relief with hot water application to the area. She had a 10 days ago for delivery of a male . She is currently on Motrin for pain relief stopped Percocet 3 days ago. Examination reveals pain well localized to the belly of the left medial gastrocnemius muscle. There is no significant edema in the lower extremity. Patient is at risk due to being and operative intervention. Pain may be from eating placed in stirrups at time of surgery. Doppler ultrasound will be completed on the left leg to ensure that there is no DVT. - Re-Assessments/Exams Free Text/Narrative Re-Assessment/Exam: 07/19/17 05:36 Doppler ultrasound of the left lower extremity was reported by be read as being normal. I also reviewed the ultrasound as documented by the cardiopulmonary technologist chief and I did not identify any clots in the deep venous system with normal augmentation evident. Treatment appears to be a strain of the medial gastrocnemius muscle or spontaneous hemorrhage into the belly of the muscle to cause acute pain. Treatment at this time is therefore conservative with continued Motrin use for pain relief elevation of the leg is much as possible and heat pack to the area for one half hour out of every 4-6 hours for the next several days until improved. She will be following up with Dr. Long next week in regards to wound. Departure - Departure Time of Disposition: 05:32 Disposition: Home, Self-Care 01 Condition: Fair Clinical Impression: Strain of calf muscle Qualifiers: Encounter type: initial encounter Laterality: left Qualified Code(s): S86.812A - Strain of other muscle(s) and tendon(s) at lower leg level, left leg, initial encounter - Discharge Information Referrals: Ortega Long MD [Primary Care Provider] - Forms: ED Department Discharge Additional Instructions: Evaluation in the emergency room this morning in regards to persistent pain left medial calf since ThanksgiJuly 16. History suggests fairly rapid onset of pain left calf which has persisted taking it difficult to walk at times. Examination reveals pain well localized to the medial gastrocnemius muscle in the calf. No convincing evidence clinically of a deep venous thrombus or DVT. Risk factors however are present because of recent surgery with C- section in 10 days . [place] in the popliteal fossa or the space behind her knee was identified on exam. An ultrasound was therefore carried out to ensure that she did not have a clot in your lower extremity and none was found. It appears that there is been a strain of the medial gastrocnemius muscle either from a broken blood vessel spontaneously or partial tear of the muscle simply from walking. Treatment at this time is conservative with use of Motrin 600 mg every 6 hours needed for relief of pain and inflammation. Suggest heat pack to the area for one half hour out of every 4-6 hours until better. Usually he'll take a week to 10 days to settle down completely. Follow-up with Dr. Long next week as planned. - My Orders Last 24 Hours: My Active Orders 07/19/17 04:22 VL Duplex Lwr Ext Veins Ltd Lt [US] Stat - Assessment/Plan Last 24 Hours: My Active Orders 07/19/17 04:22 VL Duplex Lwr Ext Veins Ltd Lt [US] Stat
--- NOTE | 2017-07-21 11:41 | US ---
Left lower extremity deep venous ultrasound: Duplex and color flow imaging was obtained of the left common femoral, proximal greater saphenous, superficial femoral, popliteal, posterior tibial and peroneal veins. Right common femoral vein was also evaluated. Findings: Normal phasic flow, augmentation and compression are seen. Impression: 1. No evidence of deep venous thrombosis is seen within the left lower extremity or within the right common femoral vein. Diagnostic code #1 I agree with preliminary report issued by [facility] ([facility] report finalized on 07/19/17, 6:23 AM Central Time)
== END 2017-07-19 05:41 | disposition home or self-care (01) ==
LOC: JD.ED 03:55
DX: O9A.23 Injury, poisoning and certain other consequences of external causes complicating the puerperium (principal); S86.812A Strain of other muscle(s) and tendon(s) at lower leg level, left leg, initial encounter; Z88.2 Allergy status to sulfonamides; Z88.8 Allergy status to other drugs, medicaments and biological substances; X58.XXXA Exposure to other specified factors, initial encounter
CPT/HCPCS: 93971-26-LT; 93971-LT; 99283; 99283-25

== ENCOUNTER 2020-03-07 07:04 | Inpatient (IN) | payer SELFPAY ==
[2020-03-07] MEDS ORDERED: Sodium Chloride 0.9% 10 ML Syringe FLUSH PRN (07:09)
[2020-03-07] MEDS ORDERED: Nalbuphine 10 MG/ML Syringe IVPUSH PRN (07:09)
[2020-03-07] MEDS ORDERED: Ondansetron 4 MG/2 ML SDV IVPUSH PRN (07:09)
--- NOTE | 2020-03-07 07:12 | PCM.LDHP ---
L&D History of Present Illness - General Date of Service: 03/07/20 Admit Problem/Dx: Patient Status Order with Admit Dx/Problem 03/07/20 07:09 Patient Status [ADT] Routine Admission Diagnosis/Problem Admission Diagnosis/Problem History of section Source of Information: Patient History Limitations: Reports: No Limitations - History of Present Illness Introduction:: Patient is a 30 y/o at 39 2/7 wks who presents for elective IOL/TOLAC. Last delivery was post dates IOL where received one dose of cytotec and then went to emergent delivery. Cervical exam closed. When reviewing options for this patient ultimately felt most comfortable with IOL today. Otherwise doing well. Some cramping. No other changes - Related Data Allergies/Adverse Reactions: Allergies Allergy/AdvReac Type Severity Reaction Status Date / Time miconazole Allergy Intermediate Tachycardia Verified 07/19/17 04:09 Sulfa (Sulfonamide Allergy Rash Verified 07/19/17 04:09 Antibiotics) Home Medications: Home Meds . 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): - Past Surgical History HEENT Surgical History: Reports: Oral Surgery Other HEENT Surgeries/Procedures: [place] teeth extraction 2004 GI Surgical History: Reports: EGD Female Surgical History: Reports: Section Social & Family History - Tobacco Use Smoking Status *Q: Never Smoker - Alcohol Use Alcohol Use History: No - Recreational Drug Use Recreational Drug Use: No - Living Situation & Occupation Living situation: Reports: 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.) H&P Review of Systems - Review of Systems: Review Of Systems: See Below General: Reports: No Symptoms Pulmonary: Reports: No Symptoms Cardiovascular: Reports: No Symptoms Gastrointestinal: Reports: No Symptoms Genitourinary: Reports: No Symptoms Musculoskeletal: Reports: No Symptoms Psychiatric: Reports: No Symptoms Neurological: Reports: No Symptoms L&D Exam - Exam Exam: See Below - OB Specific Contraction Intensity: Irritability Movement: Active Heart Tones: Present Heart Tones per Min: 150 Heart Rate (FHR) Variability: Moderate (6-25 bmp) Presentation: Vertex - Johns Score Johns Score Cervix Position: Midposition Johns Score Consistency: Soft Johns Score Effacement: 51-70% Johns Score Dilation: 1-2 cm Johns Score 's Station: -2 Johns Score Total: 7 - Exam General: Alert, Oriented, Cooperative Lungs: Clear to Auscultation, Normal Respiratory Effort Cardiovascular: Regular Rate, Regular Rhythm GI/Abdominal Exam: Soft, Non-Tender Genitourinary: Normal external exam Extremities: Normal Inspection Skin: Warm, Dry, Intact - Problem List (1) 39 weeks gestation of SNOMED Code(s): 88921551 ICD Code: Z3A.39 - 39 WEEKS GESTATION OF Status: Acute Current Visit: Yes (2) History of delivery SNOMED Code(s): 704250955 ICD Code: Z98.891 - HISTORY OF UTERINE SCAR FROM PREVIOUS SURGERY Status: Acute Current Visit: Yes (3) GBS carrier SNOMED Code(s): 0678893334637 ICD Code: Z22.330 - CARRIER OF GROUP B STREPTOCOCCUS Status: Acute Current Visit: No Problem List Initiated/Reviewed/Updated: Yes Orders Last 24hrs: Active Orders 24 hr Category Date Time Status Patient Status [ADT] Routine ADT 03/07/20 07:09 Ordered Communication Order [RC] ASDIRECTED Care 03/07/20 07:09 Ordered Communication Order [RC] ASDIRECTED Care 03/07/20 07:09 Ordered Communication Order [RC] ASDIRECTED Care 03/07/20 07:09 Ordered Non Stress Test [RC] PER UNIT ROUTINE Care 03/07/20 07:09 Ordered Notify Provider [RC] ASDIRECTED Care 03/07/20 07:09 Ordered Notify Provider [RC] PRN Care 03/07/20 07:09 Ordered Peripheral IV Care [RC] . DIRECTED Care 03/07/20 07:10 Ordered Vaginal Exam [RC] ASDIRECTED Care 03/07/20 07:09 Ordered Vital Signs [RC] ASDIRECTED Care 03/07/20 07:09 Ordered Regular Diet [DIET] Diet 03/07/20 Breakfast Ordered CBC W/O DIFF,HEMOGRAM [HEME] Routine Lab 03/07/20 07:09 Ordered CORONAVIRUS COVID-19 STARR [MOLEC] Routine Lab 03/07/20 07:09 Ordered RAPID PLASMA REAGIN,RPR [CHEM] Routine Lab 03/07/20 07:09 Ordered TYPE AND SCREEN [BBK] Routine Lab 03/07/20 07:09 Ordered Lactated Ringers [Ringers, Lactated] 1,000 ml Med 03/07/20 07:15 Ordered IV ASDIRECTED Nalbuphine [Nubain] Med 03/07/20 07:09 Ordered 10 mg IVPUSH Q2H PRN Ondansetron [Zofran] Med 03/07/20 07:09 Ordered 4 mg IVPUSH Q4H PRN Oxytocin/Lactated Ringers [Pitocin in LR 10 Units/1,000 Med 03/07/20 07:15 Ordered ML] 10 unit in 1,000 ml IV .CONTINUOUS Oxytocin/Lactated Ringers [Pitocin in LR 10 Units/1,000 Med 03/07/20 07:15 Ordered ML] 10 unit in 1,000 ml IV TITRATE Penicillin G Potassium [Pfizerpen] 2.5 millunits Med 03/07/20 07:15 Ordered Sodium Chloride 0.9% [Normal Saline] 100 ml IV Q4H Penicillin G Potassium [Pfizerpen] 5 millunits Med 03/07/20 07:15 Ordered Sodium Chloride 0.9% [Normal Saline] 100 ml IV ONETIME Sodium Chloride 0.9% [Saline Flush] Med 03/07/20 07:09 Ordered 10 ml FLUSH ASDIRECTED PRN Electronic Heart Tones Internal [WOMSER] Per Unit Oth 03/07/20 07:09 Ordered Routine Peripheral IV Insertion Adult [OM.PC] Routine Oth 03/07/20 07:09 Ordered Resuscitation Status Routine Resus Stat 03/07/20 07:09 Ordered Assessment/Plan Comment:: labs done Schilling bulb placed for IOL. Pitocin to be started. AROM when able GBS positive, PCN started Pain management per patient preference Anticipate Patient aware of risks/benefits of TOLAC
[2020-03-07] MEDS ORDERED: Oxytocin/Lactated Ringers 10 UNIT/1,000 ML BAG IV SCH ×2 (07:15)
[2020-03-07] MEDS ORDERED: Penicillin G Potassium 5 MILLUNITS in Sodium Chloride 0.9% 100 ML IV SCH (07:15)
[2020-03-07] MEDS: Lactated Ringers 1,000 ML IV SCH ×3 (08:04→12:40)
--- NOTE | 2020-03-07 08:59 | PCM.PREANE ---
Preanesthetic Assessment - Procedure Proposed Procedure: brigida - Anesthesia/Transfusion/Family Hx Anesthesia History: Prior Anesthesia Without Reaction Family History of Anesthesia Reaction: No Transfusion History: No Prior Transfusion(s) Type of Transfusion Reactions: Reports: Unknown Intubation History: Unknown - Review of Systems General: No Symptoms Pulmonary: No Symptoms Cardiovascular: No Symptoms Gastrointestinal: Nausea Neurological: No Symptoms Other: Reports: None - Physical Assessment Vital Signs: 129/95 116 20 Height: 5 ft 5 in Weight: 94.347 kg ASA Class: 2 Mental Status: Alert & Oriented x3 Airway Class: Mallampati = 1 Dentition: Reports: Normal Dentition Thyro-Mental Finger Breadths: 3 Mouth Opening Finger Breadths: 3 ROM/Head Extension: Full Lungs: Clear to Auscultation, Normal Respiratory Effort Cardiovascular: Regular Rate, Regular Rhythm, No Murmurs - Lab Values: Laboratory Last Values WBC 12.68 K/mm3 (3.98-10.04) H 03/07/20 07:23 RBC 4.29 M/mm3 (3.98-5.22) 03/07/20 07:23 Hgb 11.1 gm/dl (11.2-15.7) L D 03/07/20 07:23 Hct 35.5 % (34.1-44.9) 03/07/20 07:23 MCV 82.8 fl (79.4-94.8) 03/07/20 07:23 MCH 25.9 pg (25.6-32.2) 03/07/20 07:23 MCHC 31.3 g/dl (32.2-35.5) L 03/07/20 07:23 RDW Std Deviation 40.8 fL (36.4-46.3) 03/07/20 07:23 Plt Count 415 K/mm3 (182-369) H 03/07/20 07:23 MPV 8.8 fl (9.4-12.3) L 03/07/20 07:23 Blood Type O POSITIVE 03/07/20 07:23 Gel Antibody Screen Negative 03/07/20 07:23 - Allergies Allergies/Adverse Reactions: Allergies Allergy/AdvReac Type Severity Reaction Status Date / Time miconazole Allergy Intermediate Tachycardia Verified 07/19/17 04:09 Sulfa (Sulfonamide Allergy Rash Verified 07/19/17 04:09 Antibiotics) - Blood Blood Available: No - Acknowledgements Anesthesia Type Planned: Epidural Pt an Appropriate Candidate for the Planned Anesthesia: Yes Alternatives and Risks of Anesthesia Discussed w Pt/Guardian: Yes Pt/Guardian Understands and Agrees with Anesthesia Plan: Yes PreAnesthesia Questionnaire - Past Health History Medical/Surgical History: Denies Medical/Surgical History Cardiovascular History: Reports: None Respiratory History: Reports: None Gastrointestinal History: Reports: GERD (with preg), Other (See Below) (dyshagia- liquid diet since 26 weeks) 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 [No Known Home Meds] 07/19/17 [History] Pnv No.95/Ferrous Fum/Folic AC [ Tablet] 1 tab PO DAILY 07/19/17 [History] - CURRENT (IN HOUSE) MEDS Current Meds: Current Medications Oxytocin/Lactated Ringer's (Pitocin In Lr 10 Units/1,000 Ml) 10 unit in 1,000 mls @ 12 mls/hr IV TITRATE JOHNNA; Protocol Last Titration: 03/07/20 08:31 Dose: 4 munits/min, 24 mls/hr Documented by: Penicillin G Potassium 5 (millunits/ Sodium Chloride) 100 mls @ 55 mls/hr IV ONETIME JOHNNA Last Admin: 03/07/20 08:04 Dose: 55 mls/hr Documented by: Penicillin G Potassium 2.5 (millunits/ Sodium Chloride) 100 mls @ 55 mls/hr IV Q4H JOHNNA Oxytocin/Lactated Ringer's (Pitocin In Lr 10 Units/1,000 Ml) 10 unit in 1,000 mls @ 500 mls/hr IV .CONTINUOUS JOHNNA Lactated Ringer's (Ringers, Lactated) 1,000 mls @ 40 mls/hr IV ASDIRECTED JOHNNA Last Admin: 03/07/20 08:04 Dose: 5 mls/hr Documented by: Nalbuphine HCl (Nubain) 10 mg IVPUSH Q2H PRN PRN Reason: Pain Ondansetron HCl (Zofran) 4 mg IVPUSH Q4H PRN PRN Reason: Nausea/Vomiting Sodium Chloride (Saline Flush) 10 ml FLUSH ASDIRECTED PRN PRN Reason: Keep Vein Open
[2020-03-07] MEDS ORDERED: ePHEDrine 50 MG/ML SDV IVPUSH PRN (09:00)
[2020-03-07] MEDS ORDERED: diphenhydrAMINE 50 MG/ML SDV IVPUSH PRN (09:00)
[2020-03-07] MEDS ORDERED: fentaNYL 100 MCG/2 ML SDV EPIDUR PRN (09:00)
[2020-03-07] MEDS ORDERED: Bupivacaine/fentaNYL/NS 100 ML Bag EPIDUR PRN (09:00)
--- NOTE | 2020-03-07 10:49 | PCM.PNLD ---
Labor Progress Note - VS & Meds Vital Signs: Last Vital Signs Temp 36.5 C 03/07/20 07:09 Pulse 109 H 03/07/20 07:09 Resp 16 03/07/20 07:09 BP 136/81 03/07/20 07:09 Pulse Ox 100 03/07/20 07:09 Active Medications: Current Medications Diphenhydramine HCl (Benadryl) 25 mg IVPUSH Q6H PRN PRN Reason: pruritis Ephedrine Sulfate (Ephedrine Sulfate) 5 mg IVPUSH ASDIRECTED PRN PRN Reason: Hypotension Fentanyl (Sublimaze) 100 mcg EPIDUR Q3H PRN PRN Reason: Pain Fentanyl/Bupivacaine HCl (Fentanyl/Bupivacaine/Ns 2 Mcg-0.125% 100 Ml) 100 ml EPIDUR ASDIRECTED PRN PRN Reason: Pain Oxytocin/Lactated Ringer's (Pitocin In Lr 10 Units/1,000 Ml) 10 unit in 1,000 mls @ 12 mls/hr IV TITRATE JOHNNA; Protocol Last Titration: 03/07/20 10:32 Dose: 8 munits/min, 48 mls/hr Documented by: Penicillin G Potassium 5 (millunits/ Sodium Chloride) 100 mls @ 55 mls/hr IV ONETIME JOHNNA Last Admin: 03/07/20 08:04 Dose: 55 mls/hr Documented by: Penicillin G Potassium 2.5 (millunits/ Sodium Chloride) 100 mls @ 55 mls/hr IV Q4H JOHNNA Oxytocin/Lactated Ringer's (Pitocin In Lr 10 Units/1,000 Ml) 10 unit in 1,000 mls @ 500 mls/hr IV .CONTINUOUS JOHNNA Lactated Ringer's (Ringers, Lactated) 1,000 mls @ 40 mls/hr IV ASDIRECTED JOHNNA Last Admin: 03/07/20 08:04 Dose: 5 mls/hr Documented by: Nalbuphine HCl (Nubain) 10 mg IVPUSH Q2H PRN PRN Reason: Pain Ondansetron HCl (Zofran) 4 mg IVPUSH Q4H PRN PRN Reason: Nausea/Vomiting Sodium Chloride (Saline Flush) 10 ml FLUSH ASDIRECTED PRN PRN Reason: Keep Vein Open - Uterine Contractions Uterine Monitoring Mode: External [place] Contraction Intensity: Mild to Moderate Uterine Resting Tone: Soft - Monitoring Monitor Mode: External Ultrasound Heart Rate (FHR) Baseline: 150 Heart Rate (FHR) Variability: Moderate (6-25 bmp) Accelerations: Present, 10x10 (=/<32 wks) Decelerations: None Strip Review: Category I - Vaginal Exam Dilation (cm): 4 Effacement (Percent): 75 Station: -2 Cervical Position: Midposition - Labor Progress (Free Text) Labor Progress: Doing well. Schilling bulb out earlier this AM. On 8 of pitocin. Rates contractions as a 6/10. AROM performed with release of clear fluid. Continue present management. Continue PCN for GBS prophylaxis
[2020-03-07] MEDS: Penicillin G Potassium 2.5 MILLUNITS in Sodium Chloride 0.9% 100 ML IV SCH ×2 (11:33→15:22)
--- NOTE | 2020-03-07 17:48 | PCM.DEL ---
L & D Note - General Info Date of Service: 03/07/20 - Delivery Note Labor: Induced by ARM, Induced by Oxytocin Cervical Ripening Method: Balloon Device Delivery Outcome: Livebirth Infant Delivery Method: Spontaneous Vaginal Delivery-Single Infant Delivery Mode: Spontaneous Presentation: Left Occiput Anterior (SERA) Nuchal Cord: None Anesthesia Type: Epidural Amniotic Fluid Description: Clear Episiotomy Type: None Laceration: 2nd Degree Suture type: Vicryl Suture size: 2-0 Placenta: Intact, Spontaneous Cord: 3 Vessels Estimated Blood Loss: 200 Resuscitation Needed: Yes : Bulb Syringe, Stimulated, Warmed, [place] Used, Warmer Used Delivery Comments (Free Text/Narrative):: Patient found to be complete and began pushing. With maternal pushing effort head delivered from SERA presentation. No nuchal cord present. With gentle downward traction the shoulders and body delivered. placed on maternal abdomen. Cord clamped and cut. Cord blood obtained. Placenta allowed time to separate and expelled intact. Inspection of the perineum showed a 2nd degree laceration which was repaired with a 2-0 vicryl in the typical fashion. - General Info Date of Service: 03/07/20 - Patient Data Vitals - Most Recent: Last Vital Signs Temp 36.5 C 03/07/20 07:09 Pulse 109 H 03/07/20 07:09 Resp 16 03/07/20 07:09 BP 136/81 03/07/20 07:09 Pulse Ox 100 03/07/20 07:09 Weight - Most Recent: 94.347 kg Lab Results Last 24 Hours: Laboratory Results - last 24 hr 03/07/20 03/07/20 03/07/20 Range/Units 07:23 07:23 09:40 WBC 12.68 H (3.98-10.04) K/mm3 RBC 4.29 (3.98-5.22) M/mm3 Hgb 11.1 L D (11.2-15.7) gm/dl Hct 35.5 (34.1-44.9) % MCV 82.8 (79.4-94.8) fl MCH 25.9 (25.6-32.2) pg MCHC 31.3 L (32.2-35.5) g/dl RDW Std Deviation 40.8 (36.4-46.3) fL Plt Count 415 H (182-369) K/mm3 MPV 8.8 L (9.4-12.3) fl COVID-19 (STARR) Negative (NEGATIVE) Blood Type O POSITIVE Gel Antibody Screen Negative Med Orders - Current: Current Medications Diphenhydramine HCl (Benadryl) 25 mg IVPUSH Q6H PRN PRN Reason: pruritis Ephedrine Sulfate (Ephedrine Sulfate) 5 mg IVPUSH ASDIRECTED PRN PRN Reason: Hypotension Fentanyl (Sublimaze) 100 mcg EPIDUR Q3H PRN PRN Reason: Pain Last Admin: 03/07/20 11:28 Dose: 100 mcg Documented by: Fentanyl/Bupivacaine HCl (Fentanyl/Bupivacaine/Ns 2 Mcg-0.125% 100 Ml) 100 ml EPIDUR ASDIRECTED PRN PRN Reason: Pain Last Admin: 03/07/20 11:28 Dose: 100 ml Documented by: Oxytocin/Lactated Ringer's (Pitocin In Lr 10 Units/1,000 Ml) 10 unit in 1,000 mls @ 12 mls/hr IV TITRATE JOHNNA; Protocol Last Titration: 03/07/20 15:12 Dose: 2 munits/min, 12 mls/hr Documented by: Penicillin G Potassium 2.5 (millunits/ Sodium Chloride) 100 mls @ 55 mls/hr IV Q4H JOHNNA Last Admin: 03/07/20 15:22 Dose: 55 mls/hr Documented by: Oxytocin/Lactated Ringer's (Pitocin In Lr 10 Units/1,000 Ml) 10 unit in 1,000 mls @ 500 mls/hr IV .CONTINUOUS JOHNNA Lactated Ringer's (Ringers, Lactated) 1,000 mls @ 40 mls/hr IV ASDIRECTED JOHNNA Last Admin: 03/07/20 12:40 Dose: 40 mls/hr Documented by: Nalbuphine HCl (Nubain) 10 mg IVPUSH Q2H PRN PRN Reason: Pain Ondansetron HCl (Zofran) 4 mg IVPUSH Q4H PRN PRN Reason: Nausea/Vomiting Sodium Chloride (Saline Flush) 10 ml FLUSH ASDIRECTED PRN PRN Reason: Keep Vein Open Discontinued Medications Penicillin G Potassium 5 (millunits/ Sodium Chloride) 100 mls @ 55 mls/hr IV ONETIME JOHNNA Last Admin: 03/07/20 08:04 Dose: 55 mls/hr Documented by: - Problem List & Annotations (1) 39 weeks gestation of SNOMED Code(s): 91474455 Code(s): Z3A.39 - 39 WEEKS GESTATION OF Status: Acute Current Visit: Yes (2) History of delivery SNOMED Code(s): 018976603 Code(s): Z98.891 - HISTORY OF UTERINE SCAR FROM PREVIOUS SURGERY Status: Acute Current Visit: Yes (3) GBS carrier SNOMED Code(s): 2716932532789 Code(s): Z22.330 - CARRIER OF GROUP B STREPTOCOCCUS Status: Acute Current Visit: No (4) Vaginal after SNOMED Code(s): 008160426 Code(s): O34.219 - MATERNAL CARE FOR UNSP TYPE SCAR FROM PREVIOUS DEL Status: Acute Current Visit: Yes - Problem List Review Problem List Initiated/Reviewed/Updated: Yes - My Orders Last 24 Hours: My Active Orders 03/07/20 Breakfast Regular Diet [DIET] 03/07/20 07:09 Patient Status [ADT] Routine Communication Order [RC] ASDIRECTED Communication Order [RC] ASDIRECTED Communication Order [RC] ASDIRECTED Notify Provider [RC] ASDIRECTED Notify Provider [RC] PRN Nalbuphine [Nubain] 10 mg IVPUSH Q2H PRN Ondansetron [Zofran] 4 mg IVPUSH Q4H PRN Sodium Chloride 0.9% [Saline Flush] 10 ml FLUSH ASDIRECTED PRN Electronic Heart Tones Internal [WOMSER] Per Unit Routine Peripheral IV Insertion Adult [OM.PC] Routine Resuscitation Status Routine 03/07/20 07:10 Peripheral IV Care [RC] Q2HR 03/07/20 07:15 Lactated Ringers [Ringers, Lactated] 1,000 ml IV ASDIRECTED Oxytocin/Lactated Ringers [Pitocin in LR 10 Units/1,000 ML] 10 unit in 1,000 ml IV .CONTINUOUS Oxytocin/Lactated Ringers [Pitocin in LR 10 Units/1,000 ML] 10 unit in 1,000 ml IV TITRATE 03/07/20 07:23 RAPID PLASMA REAGIN,RPR [CHEM] Routine 03/07/20 12:00 Penicillin G Potassium [Pfizerpen] 2.5 millunits Sodium Chloride 0.9% [Normal Saline] 100 ml IV Q4H - Assessment Assessment:: PPD#0 - Plan Plan:: Routine cares Breast feeding Discharge home in 1-2 days
[2020-03-07] MEDS ORDERED: Acetaminophen 325 MG Tab PO PRN (18:07)
[2020-03-07] MEDS ORDERED: Witch Hazel Medicated Pads 40/Jar TOP PRN (18:07)
[2020-03-07] MEDS ORDERED: Docusate Sodium 100 MG Cap PO PRN (18:07)
[2020-03-07] MEDS ORDERED: Ibuprofen 600 MG Tab PO PRN (18:07)
[2020-03-07] MEDS ORDERED: Benzocaine/Menthol 20%-0.5% Spray 56 GM Canister TOP PRN (18:07)
[2020-03-07] MEDS ORDERED: Ketorolac 30 MG/ML SDV IVPUSH SCH (19:00)
[2020-03-07] MEDS: Ketorolac 30 MG/ML SDV IVPUSH PRN (21:35)
[2020-03-08] MEDS ORDERED: Bupivacaine 0.25% 10 ML SDV ONE
[2020-03-08] MEDS: Ketorolac 30 MG/ML SDV IVPUSH PRN ×2 (03:33→12:26)
--- NOTE | 2020-03-08 07:09 | PCM.PNPP ---
- General Info Date of Service: 03/08/20 Functional Status: Reports: Pain Controlled, Tolerating Diet, Ambulating, Urinating - Review of Systems General: Reports: No Symptoms Pulmonary: Reports: No Symptoms Cardiovascular: Reports: No Symptoms Gastrointestinal: Reports: No Symptoms Genitourinary: Reports: No Symptoms Musculoskeletal: Reports: No Symptoms Neurological: Reports: No Symptoms - General Info Date of Service: 03/08/20 - Patient Data Vital Signs - Most Recent: Last Vital Signs Temp 36.8 C 03/08/20 03:26 Pulse 76 03/08/20 03:26 Resp 14 03/08/20 03:26 BP 105/65 03/08/20 03:26 Pulse Ox 95 03/08/20 03:26 Weight - Most Recent: 94.347 kg I&O - Last 24 Hours: Intake & Output 03/07/20 03/08/20 03/08/20 22:59 06:59 14:59 Intake Total 4300 Output Total 200 Balance 4100 Lab Results - Last 24 Hours: Laboratory Results - last 24 hr 03/07/20 03/07/20 03/07/20 Range/Units 07:23 07:23 09:40 WBC 12.68 H (3.98-10.04) K/mm3 RBC 4.29 (3.98-5.22) M/mm3 Hgb 11.1 L D (11.2-15.7) gm/dl Hct 35.5 (34.1-44.9) % MCV 82.8 (79.4-94.8) fl MCH 25.9 (25.6-32.2) pg MCHC 31.3 L (32.2-35.5) g/dl RDW Std Deviation 40.8 (36.4-46.3) fL Plt Count 415 H (182-369) K/mm3 MPV 8.8 L (9.4-12.3) fl COVID-19 (STARR) Negative (NEGATIVE) Blood Type O POSITIVE Gel Antibody Screen Negative Med Orders - Current: Current Medications Acetaminophen (Tylenol) 650 mg PO Q4H PRN PRN Reason: mild pain or fever Benzocaine/Menthol (Dermoplast Pain Relief Brickeys) 0 gm TOP ASDIRECTED PRN PRN Reason: Perineal Comfort Measure Last Admin: 03/07/20 18:27 Dose: 1 can Documented by: Docusate Sodium (Colace) 100 mg PO BID PRN PRN Reason: Constipation Ketorolac Tromethamine (Toradol) 30 mg IVPUSH Q6H PRN PRN Reason: Pain Last Admin: 03/08/20 03:33 Dose: 30 mg Documented by: Last Juárez (Lissette) 1 pad TOP ASDIRECTED PRN PRN Reason: Perineal Comfort Measure Last Admin: 03/07/20 18:27 Dose: 1 container Documented by: Discontinued Medications Diphenhydramine HCl (Benadryl) 25 mg IVPUSH Q6H PRN PRN Reason: pruritis Ephedrine Sulfate (Ephedrine Sulfate) 5 mg IVPUSH ASDIRECTED PRN PRN Reason: Hypotension Fentanyl (Sublimaze) 100 mcg EPIDUR Q3H PRN PRN Reason: Pain Last Admin: 03/07/20 11:28 Dose: 100 mcg Documented by: Fentanyl/Bupivacaine HCl (Fentanyl/Bupivacaine/Ns 2 Mcg-0.125% 100 Ml) 100 ml EPIDUR ASDIRECTED PRN PRN Reason: Pain Last Admin: 03/07/20 11:28 Dose: 100 ml Documented by: Oxytocin/Lactated Ringer's (Pitocin In Lr 10 Units/1,000 Ml) 10 unit in 1,000 mls @ 12 mls/hr IV TITRATE JOHNNA; Protocol Last Titration: 03/07/20 16:17 Dose: 166.5 munits/min, 999 mls/hr Documented by: Penicillin G Potassium 5 (millunits/ Sodium Chloride) 100 mls @ 55 mls/hr IV ONETIME JOHNNA Last Admin: 03/07/20 08:04 Dose: 55 mls/hr Documented by: Penicillin G Potassium 2.5 (millunits/ Sodium Chloride) 100 mls @ 55 mls/hr IV Q4H JOHNNA Last Admin: 03/07/20 15:22 Dose: 55 mls/hr Documented by: Oxytocin/Lactated Ringer's (Pitocin In Lr 10 Units/1,000 Ml) 10 unit in 1,000 mls @ 500 mls/hr IV .CONTINUOUS JOHNNA Lactated Ringer's (Ringers, Lactated) 1,000 mls @ 40 mls/hr IV ASDIRECTED JOHNNA Last Admin: 03/07/20 12:40 Dose: 40 mls/hr Documented by: Ibuprofen (Motrin) 600 mg PO Q6H PRN PRN Reason: Mild pain or fever Ketorolac Tromethamine (Toradol) 30 mg IVPUSH Q6H JOHNNA Last Admin: 03/07/20 20:49 Dose: Not Given Documented by: Nalbuphine HCl (Nubain) 10 mg IVPUSH Q2H PRN PRN Reason: Pain Ondansetron HCl (Zofran) 4 mg IVPUSH Q4H PRN PRN Reason: Nausea/Vomiting Sodium Chloride (Saline Flush) 10 ml FLUSH ASDIRECTED PRN PRN Reason: Keep Vein Open - Infant Interaction Disposition, : in Room with Family Interaction: Holding Infant Feeding: Breastfed Infant; Nursed Well Support Person: - Recovery Exam Fundal Tone: Firm Fundal Level: At Umbilicus Fundal Placement: Midline Lochia Amount: Small Lochia Color: Rubra/Red Perineum Description: Intact, Minimal Bruising/Swelling Episiotomy/Laceration: Approximated Bladder Status: Voiding Urinary Elimination: Voided - Exam General: Alert, Oriented, Cooperative GI/Abdominal Exam: Soft, Non-Tender Extremities: Normal Inspection Skin: Warm, Dry, Intact - Problem List & Annotations (1) 39 weeks gestation of SNOMED Code(s): 62762433 Code(s): Z3A.39 - 39 WEEKS GESTATION OF Status: Acute Current Visit: Yes (2) History of delivery SNOMED Code(s): 291494970 Code(s): Z98.891 - HISTORY OF UTERINE SCAR FROM PREVIOUS SURGERY Status: Acute Current Visit: Yes (3) GBS carrier SNOMED Code(s): 0932295634351 Code(s): Z22.330 - CARRIER OF GROUP B STREPTOCOCCUS Status: Acute Current Visit: No (4) Vaginal after SNOMED Code(s): 566412794 Code(s): O34.219 - MATERNAL CARE FOR UNSP TYPE SCAR FROM PREVIOUS DEL Status: Acute Current Visit: Yes - Problem List Review Problem List Initiated/Reviewed/Updated: Yes - My Orders Last 24 Hours: My Active Orders 03/07/20 07:09 Resuscitation Status Routine 03/07/20 07:10 Peripheral IV Care [RC] Q2HR 03/07/20 07:23 RAPID PLASMA REAGIN,RPR [CHEM] Routine 03/07/20 Dinner Regular Diet [DIET] 03/07/20 18:07 Acetaminophen [Tylenol] 650 mg PO Q4H PRN Benzocaine/Menthol [Dermoplast Pain Relief Brickeys] See Dose Instructions TOP ASDIRECTED PRN Docusate Sodium [Colace] 100 mg PO BID PRN witch Loretta [Tucks] 1 pad TOP ASDIRECTED PRN Heat Therapy [OM.PC] PRN 03/07/20 18:07 Activity as Tolerated [RC] PER UNIT ROUTINE Vital Signs [RC] 03,,15,21 Assess Lochia [WOMSER] Per Unit Routine Assess Uterine Involution [WOMSER] Per Unit Routine Breast Pump [WOMSER] Per Unit Routine Ice Therapy [OM.PC] Per Unit Routine Perineal Care [OM.PC] Per Unit Routine Peripheral IV Discontinue [OM.PC] Routine Sitz Bath [OM.PC] Per Unit Routine 03/07/20 19:42 Ketorolac [Toradol] 30 mg IVPUSH Q6H PRN 03/08/20 18:07 Heat Therapy [OM.PC] PRN - Assessment Assessment:: PPD#1 - Plan Plan:: Routine cares Breast feeding Discharge home today
--- NOTE | 2020-03-08 07:13 | PCM.DCSUM1 ---
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 Induction done with pitocin and miller bulb. Eventually underwent AROM and had quick change to complete dilation. Underwent uncomplicated . Discharged home on PPD#1 - Patient Instructions Diet: Regular Diet as Tolerated Activity: As Tolerated Activity, Other: Pelvic rest for 6 weeks Driving: May Drive Today Showering/Bathing: May Shower Showering/Bathing, Other: May Bathe Notify Provider of: Fever, Increased Pain, Swelling and Redness, Drainage, Nausea and/or Vomiting - Discharge Plan *PRESCRIPTION DRUG MONITORING PROGRAM REVIEWED*: No *COPY OF PRESCRIPTION DRUG MONITORING REPORT IN PATIENT FAUSTINO: No Home Medications: Home Meds Pnv No.95/Ferrous Fum/Folic AC [ Tablet] 1 tab PO DAILY 07/19/17 [History] Docusate Sodium [Colace] 100 mg PO BID PRN cap 03/08/20 [Rx] Referrals: Sydney Parker MD [Physician] - (3 weeks for check ) - Discharge Summary/Plan Comment DC Time >30 min.: No - Patient Data Vitals - Most Recent: Last Vital Signs Temp 36.8 C 03/08/20 03:26 Pulse 76 07/16/20 03:26 Resp 14 03/08/20 03:26 BP 105/65 03/08/20 03:26 Pulse Ox 95 03/08/20 03:26 Weight - Most Recent: 94.347 kg I&O - Last 24 hours: Intake & Output 03/07/20 03/08/20 03/08/20 22:59 06:59 14:59 Intake Total 4300 Output Total 200 Balance 4100 Lab Results - Last 24 hrs: Laboratory Results - last 24 hr 03/07/20 03/07/20 03/07/20 Range/Units 07:23 07:23 09:40 WBC 12.68 H (3.98-10.04) K/mm3 RBC 4.29 (3.98-5.22) M/mm3 Hgb 11.1 L D (11.2-15.7) gm/dl Hct 35.5 (34.1-44.9) % MCV 82.8 (79.4-94.8) fl MCH 25.9 (25.6-32.2) pg MCHC 31.3 L (32.2-35.5) g/dl RDW Std Deviation 40.8 (36.4-46.3) fL Plt Count 415 H (182-369) K/mm3 MPV 8.8 L (9.4-12.3) fl COVID-19 ([facility]) Negative (NEGATIVE) Blood Type O POSITIVE Gel Antibody Screen Negative Med Orders - Current: Current Medications Acetaminophen (Tylenol) 650 mg PO Q4H PRN PRN Reason: mild pain or fever Benzocaine/Menthol (Dermoplast Pain Relief [place]) 0 gm TOP ASDIRECTED PRN PRN Reason: Perineal Comfort Measure Last Admin: 03/07/20 18:27 Dose: 1 can Documented by: Docusate Sodium (Colace) 100 mg PO BID PRN PRN Reason: Constipation Ketorolac Tromethamine (Toradol) 30 mg IVPUSH Q6H PRN PRN Reason: Pain Last Admin: 03/08/20 03:33 Dose: 30 mg Documented by: Last Riz[place]) 1 pad TOP ASDIRECTED PRN PRN Reason: Perineal Comfort Measure Last Admin: 03/07/20 18:27 Dose: 1 container Documented by: Discontinued Medications Diphenhydramine HCl (Benadryl) 25 mg IVPUSH Q6H PRN PRN Reason: pruritis Ephedrine Sulfate (Ephedrine Sulfate) 5 mg IVPUSH ASDIRECTED PRN PRN Reason: Hypotension Fentanyl (Sublimaze) 100 mcg EPIDUR Q3H PRN PRN Reason: Pain Last Admin: 03/07/20 11:28 Dose: 100 mcg Documented by: Fentanyl/Bupivacaine HCl (Fentanyl/Bupivacaine/Ns 2 Mcg-0.125% 100 Ml) 100 ml EPIDUR ASDIRECTED PRN PRN Reason: Pain Last Admin: 03/07/20 11:28 Dose: 100 ml Documented by: Oxytocin/Lactated Ringer's (Pitocin In Lr 10 Units/1,000 Ml) 10 unit in 1,000 mls @ 12 mls/hr IV TITRATE [facility]; Protocol Last Titration: 03/07/20 16:17 Dose: 166.5 munits/min, 999 mls/hr Documented by: Penicillin G Potassium 5 (millunits/ Sodium Chloride) 100 mls @ 55 mls/hr IV ONETIME [facility] Last Admin: 03/07/20 08:04 Dose: 55 mls/hr Documented by: Penicillin G Potassium 2.5 (millunits/ Sodium Chloride) 100 mls @ 55 mls/hr IV Q4H [facility] Last Admin: 03/07/20 15:22 Dose: 55 mls/hr Documented by: Oxytocin/Lactated Ringer's (Pitocin In Lr 10 Units/1,000 Ml) 10 unit in 1,000 mls @ 500 mls/hr IV .CONTINUOUS JOHNNA Lactated Ringer's (Ringers, Lactated) 1,000 mls @ 40 mls/hr IV ASDIRECTED [facility] Last Admin: 03/07/20 12:40 Dose: 40 mls/hr Documented by: Ibuprofen (Motrin) 600 mg PO Q6H PRN PRN Reason: Mild pain or fever Ketorolac Tromethamine (Toradol) 30 mg IVPUSH Q6H [facility] Last Admin: 03/07/20 20:49 Dose: Not Given Documented by: Nalbuphine HCl (Nubain) 10 mg IVPUSH Q2H PRN PRN Reason: Pain Ondansetron HCl (Zofran) 4 mg IVPUSH Q4H PRN PRN Reason: Nausea/Vomiting Sodium Chloride (Saline Flush) 10 ml FLUSH ASDIRECTED PRN PRN Reason: Keep Vein Open
--- NOTE | 2020-03-08 11:40 | PCM48HPAN ---
Post Anesthesia Note - EVALUATION WITHIN 48HRS OF ANESTHETIC Vital Signs in Normal Range: Yes Patient Participated in Evaluation: Yes Respiratory Function Stable: Yes Airway Patent: Yes Cardiovascular Function Stable: Yes Hydration Status Stable: Yes Pain Control Satisfactory: Yes Nausea and Vomiting Control Satisfactory: Yes Mental Status Recovered: Yes Vital Signs: Last Vital Signs Temp 36.7 C 03/08/20 08:00 Pulse 89 03/08/20 08:00 Resp 16 03/08/20 08:00 BP 129/67 03/08/20 08:00 Pulse Ox 95 03/08/20 08:00 - COMMENTS/OBSERVATIONS Free Text/Narrative:: Headache last evening took Motrin and no further headache since.
== END 2020-03-08 17:00 | disposition home or self-care (01) | DRG 807 ==
LOC: UNDOADMOB 07:04 → JD.OB 07:04 → OBSVTOIN 16:16 → JD.OB 16:16
PROVIDERS: ADMIT Obstetrics & Gynecology; ATTEND Obstetrics & Gynecology
PROC: 10E0XZZ Delivery of Products of Conception, External Approach (ICD-10-PCS; principal; 2020-03-07)
PROC: 0KQM0ZZ Repair Perineum Muscle, Open Approach (ICD-10-PCS; 2020-03-07)
PROC: 10907ZC Drainage of Amniotic Fluid, Therapeutic from Products of Conception, Via Natural or Artificial Opening (ICD-10-PCS; 2020-03-07)
PROC: 3E033VJ Introduction of Other Hormone into Peripheral Vein, Percutaneous Approach (ICD-10-PCS; 2020-03-07)
PROC: 3E0R3BZ Introduction of Anesthetic Agent into Spinal Canal, Percutaneous Approach (ICD-10-PCS; 2020-03-07)
PROC: 00HU33Z Insertion of Infusion Device into Spinal Canal, Percutaneous Approach (ICD-10-PCS; 2020-03-07)
DX: O99.824 Streptococcus B carrier state complicating childbirth (principal); Z37.0 Single live birth; Z3A.39 39 weeks gestation of pregnancy; O70.1 Second degree perineal laceration during delivery; O34.211 Maternal care for low transverse scar from previous cesarean delivery; Z11.59 Encounter for screening for other viral diseases
CPT/HCPCS: 01967; 36415; 51702; 59025; 59409; 85027; 86592; 86850; 86900; 86901; A9270-GY; J1885; J2540; J2590; J3010; J3490; J7050; J7120; U0002

== ENCOUNTER 2022-05-15 21:47 | Inpatient (IN) | payer SELFPAY ==
[2022-05-15] MEDS ORDERED: Sodium Chloride 0.9% 10 ML Syringe FLUSH PRN (22:29)
[2022-05-15] MEDS ORDERED: Nalbuphine HCl 10 MG/ 1ML Amp IVPUSH PRN (22:29)
[2022-05-15] MEDS ORDERED: Lidocaine 1% 50 ML MDV INJECT ONE (22:29)
[2022-05-15] MEDS ORDERED: Oxytocin/Lactated Ringers 10 UNIT/1,000 ML BAG IV SCH (22:30)
[2022-05-15] MEDS ORDERED: Lactated Ringers 1,000 ML IV SCH (22:30)
[2022-05-15] MEDS ORDERED: Ampicillin 2 GM in Sodium Chloride 0.9% 100 ML IV ONE (22:30)
[2022-05-15] MEDS ORDERED: fentaNYL 100 MCG/2 ML SDV EPIDUR PRN (22:38)
[2022-05-15] MEDS ORDERED: ePHEDrine 50 MG/ML SDV IVPUSH PRN (22:38)
[2022-05-15] MEDS ORDERED: diphenhydrAMINE 50 MG/ML SDV IVPUSH PRN (22:38)
[2022-05-15] MEDS ORDERED: Bupivacaine/fentaNYL/NS 100 ML Bag EPIDUR PRN (22:38)
[2022-05-16] MEDS ORDERED: Benzocaine/Menthol 20%-0.5% Spray 78 GM Cannister TOP PRN (02:12)
[2022-05-16] MEDS ORDERED: Docusate Sodium 100 MG Cap PO PRN (02:12)
[2022-05-16] MEDS ORDERED: Witch Hazel Medicated Pads 40/Jar TOP PRN (02:12)
[2022-05-16] MEDS ORDERED: Acetaminophen 325 MG Tab PO PRN (02:12)
[2022-05-16] MEDS ORDERED: Ibuprofen 600 MG Tab PO PRN (02:12)
[2022-05-16] MEDS ORDERED: Ampicillin 1 GM in Sodium Chloride 0.9% 100 ML IV SCH (02:30)
[2022-05-16] MEDS ORDERED: Sodium Chloride 0.9% 10 ML Syringe FLUSH SCH (09:00)
== END 2022-05-17 09:52 | disposition home or self-care (01) | DRG 807 ==
LOC: JD.OBCHECK 21:47 → JD.OB 21:50 → JD.OBCHECK 23:07 → JD.OB 23:09 → OBSVTOIN 05-16 01:24 → JD.OB 05-16 01:25
PROVIDERS: ADMIT Obstetrics & Gynecology; ATTEND Obstetrics & Gynecology
PROC: 10E0XZZ Delivery of Products of Conception, External Approach (ICD-10-PCS; principal; 2022-05-16)
PROC: 0KQM0ZZ Repair Perineum Muscle, Open Approach (ICD-10-PCS; 2022-05-16)
DX: O99.62 Diseases of the digestive system complicating childbirth (principal); Z37.0 Single live birth; K21.9 Gastro-esophageal reflux disease without esophagitis; O24.420 Gestational diabetes mellitus in childbirth, diet controlled; O70.1 Second degree perineal laceration during delivery; Z3A.39 39 weeks gestation of pregnancy; Z88.2 Allergy status to sulfonamides; Z79.899 Other long term (current) drug therapy
CPT/HCPCS: 36415; 59025; 59409; 82947; 85025; 86592; 86850; 86900; 86901; J0290; J2590; J7120